=== PATIENT | female | born 1995 | race Caucasian/White ===

== ENCOUNTER 2017-02-26 22:00 | Emergency (ER) | payer OTHER ==
[~2017-02-26 22:00] MED LIST: ADVAIR; ALBUTEROL; AZITHROMYCIN250 MG PO; LOMOTIL1 TA1 PO; OMEPRAZOLE40 MG PO; SYMBICORT; VENTOLIN HFA18 GM INH; ZANTAC 7575 MG PO; ZOFRAN ODT4 MG PO; ZOFRAN ODT4 MG/UDTAB PO; ZOFRAN4 MG PO
[2017-02-26] MEDS ORDERED: LEXAPRO10 M2 PO (22:10)
== END 2017-02-26 23:23 ==
LOC: EDMED 22:00
DX: S93.402A Sprain of unspecified ligament of left ankle, initial encounter (principal); M25.872 Other specified joint disorders, left ankle and foot; F41.9 Anxiety disorder, unspecified; K21.9 Gastro-esophageal reflux disease without esophagitis; Z79.899 Other long term (current) drug therapy; W19.XXXA Unspecified fall, initial encounter; Y92.410 Unspecified street and highway as the place of occurrence of the external cause